=== PATIENT | male | born 1950 | race Asian ===

== ENCOUNTER → 2017-01-10 | Outpatient (CLI) | payer BC | END | disposition home or self-care (01) | LOC: CFH 15:27 | PROVIDERS: ATTEND Internal Medicine | DX: G45.9 Transient cerebral ischemic attack, unspecified (principal) | CPT/HCPCS: 93880 ==

== ENCOUNTER 2017-02-17 14:20 | Emergency (ER) | payer BC ==
[~2017-02-17] VITALS: Ht 168.9 cm; Wt 81.1 kg
[2017-02-17 14:22] VITALS: BP 162/82
== END 2017-02-17 16:03 | disposition home or self-care (01) ==
LOC: ED 15:57
DX: S39.012A Strain of muscle, fascia and tendon of lower back, initial encounter (principal); X50.1XXA Overexertion from prolonged static or awkward postures, initial encounter; Y93.89 Activity, other specified; Y92.89 Other specified places as the place of occurrence of the external cause; Y99.8 Other external cause status
CPT/HCPCS: 99281

== ENCOUNTER → 2017-02-17 | Outpatient (CLI) | payer BC | END | disposition home or self-care (01) | LOC: CFH 12:25 | PROVIDERS: ATTEND Internal Medicine | DX: I08.0 Rheumatic disorders of both mitral and aortic valves (principal); I10 Essential (primary) hypertension; E78.5 Hyperlipidemia, unspecified; E11.9 Type 2 diabetes mellitus without complications; G45.9 Transient cerebral ischemic attack, unspecified | CPT/HCPCS: 93306 ==

== ENCOUNTER → 2017-02-18 | Outpatient (CLI) | payer BC | END | disposition home or self-care (01) | LOC: CFH 07:28 | PROVIDERS: ATTEND Internal Medicine | DX: I63.9 Cerebral infarction, unspecified (principal); G93.89 Other specified disorders of brain; J34.1 Cyst and mucocele of nose and nasal sinus | CPT/HCPCS: 70551 ==

== ENCOUNTER 2019-05-30 10:27 | Emergency (ER) | payer BC, MEDICARE ==
[~2019-05-30] VITALS: Ht 170.2 cm; Wt 80.3 kg
[2019-05-30] MEDS ORDERED: BENA20TA61 PO (11:24)
[2019-05-30] MEDS ORDERED: LACO50TA PO (11:24)
[2019-05-30] MEDS ORDERED: METF500T17 PO (11:24)
[2019-05-30] MEDS ORDERED: ALLO300T PO (11:24)
[2019-05-30] MEDS ORDERED: CELE50CA PO (11:24)
[2019-05-30] MEDS ORDERED: GLIM2TAB PO (11:25)
[2019-05-30 11:40] LABS: BASOPHILS # (AUTO) 0.03 x10^3/uL (0-0.1); BASOPHILS % (AUTO) 1 % (0-1); EOSINOPHILS # (AUTO) 0.13 x10^3/uL (0-0.4); EOSINOPHILS % (AUTO) 3 % (1-7); LYMPHOCYTES # (AUTO) 1.86 x10^3/uL (1-3.4); LYMPHOCYTES % (AUTO) 36 % (22-44); MD NO; MEAN CORPUSCULAR HEMOGLOBIN 30.8 pg (27.5-34.5); MEAN CORPUSCULAR HGB CONC 33.9 g/dL (33.2-36.2); MEAN CORPUSCULAR VOLUME 90.9 fL (81-97); MEAN PLATELET VOLUME 7.6 fL (7.4-10.4); MONOCYTES # (AUTO) 0.38 x10^3/uL (0.2-0.8); MONOCYTES % (AUTO) 7 % (2-9); NEUTROPHILS # (AUTO) 2.78 x10^3/uL (1.8-6.8); NEUTROPHILS % (AUTO) 54 % (42-75); PLATELET COUNT 231 x10^3/uL (130-400); RED BLOOD COUNT 5.21 x10^6/uL (4.38-5.82); RED CELL DISTRIBUTION WIDTH 13.2 % (9.4-14.8)
[2019-05-30 11:47] LABS: ALBUMIN 3.6 g/dL (3.4-5.0); ANION GAP 6 mmol/L (5-15); CALCIUM 8.3 mg/dL (8.5-10.1); CHLORIDE 108 mmol/L (98-107); CREATININE 0.99 mg/dL (0.7-1.3)
--- NOTE | 2019-05-30 12:57 | NUR ---
dr lopez spoke with dr campos
--- NOTE | 2019-05-30 13:39 | NUR ---
PT TO MRI AT THIS TIME REMAINS AO4
--- NOTE | 2019-05-30 13:56 | NUR ---
REPORT RECEIVED FROM NITA GARRISON. PLAN OF CARE DISCUSSED.
[2019-05-30 14:15] VITALS: BP 150/79
--- NOTE | 2019-05-30 14:15 | NUR ---
PATIENT BACK FROM [place], PLACED BACK ON ALL MONITORING DEVICES. VSS, NAD, CALL LIGHT IN REACH. DENIES NEEDS AT THIS TIME.
== END 2019-05-30 15:23 | disposition home or self-care (01) ==
LOC: ED 15:15
DX: R41.82 Altered mental status, unspecified (principal); R41.0 Disorientation, unspecified; E11.9 Type 2 diabetes mellitus without complications; R42 Dizziness and giddiness
CPT/HCPCS: 36415; 70450; 70551; 80048; 82040; 85025; 93005; 99284

== ENCOUNTER → 2020-03-22 | Outpatient (CLI) | payer BC, MEDICARE ==
[~2020-03-22] MED LIST: ALLO300T PO; BENA20TA61 PO; CELE50CA PO; GLIM2TAB PO; LACO50TA PO; METF500T17 PO
== END | disposition home or self-care (01) ==
LOC: CARD 07:27
PROVIDERS: ATTEND Psychiatry & Neurology Neurology
DX: R94.01 Abnormal electroencephalogram [EEG] (principal); R41.0 Disorientation, unspecified
CPT/HCPCS: 95819

== ENCOUNTER → 2020-12-07 | Outpatient (CLI) | payer MEDICARE ==
[~2020-12-07] MED LIST changes: +GADOTERATE 10 MMOL/20ML SYR ONE
== END | disposition home or self-care (01) ==
LOC: RAD 11:50
PROVIDERS: ATTEND Family Medicine
DX: M47.817 Spondylosis without myelopathy or radiculopathy, lumbosacral region (principal); M25.78 Osteophyte, vertebrae; M48.061 Spinal stenosis, lumbar region without neurogenic claudication; M54.42 Lumbago with sciatica, left side
CPT/HCPCS: 72158; 72197; A9575

== ENCOUNTER 2020-12-14 12:37 | Emergency (ER) | payer MEDICARE ==
[~2020-12-14] VITALS: Ht 170.2 cm; Wt 81.0 kg
[~2020-12-14 12:37] MED LIST changes: -GADOTERATE 10 MMOL/20ML SYR ONE
--- NOTE | 2020-12-14 12:57 | NUR ---
PT WC'D TO ROOM 28 W/ C/O LOWER BACK PAIN W/ PAIN RADIATING FROM L HIP TO LEFT FOOT. PT STATES NUMBNESS WELL. PT STATES HE CLIMBED A TREE 2 WEEKS AGO AND THEN SX BEGAN SHORTLY AFTER. PT CONTINENT. PT RESTING ON GURNEY. NADN. MONITORS APPLIED. VSS. WARM BLANKET PROVIDED. CALL LIGHT IN REACH. FAMILY AT BEDSIDE. JARRED ROBLES AT BEDSIDE FOR EVAL.
[2020-12-14] MEDS ORDERED: DEXAMETHASONE 4 MG/ML, 1ML ONE (13:15)
[2020-12-14] MEDS ORDERED: ONDANSETRON 2MG/ML, 2ML ONE (13:15)
[2020-12-14] MEDS ORDERED: HYDROmorphone 1 MG/ML, 1ML INJ ONE (13:15)
[2020-12-14] MEDS ORDERED: DEXAMETHASONE 4 MG/ML, 1ML IVPush ONE (13:30)
[2020-12-14] MEDS ORDERED: ONDANSETRON 2MG/ML, 2ML IVPush ONE (13:30)
[2020-12-14] MEDS ORDERED: SODIUM CHLORIDE FLUSH 10ML SYR IVF ONE (13:30)
[2020-12-14] MEDS ORDERED: HYDROmorphone 1 MG/ML, 1ML INJ IV ONE (13:30)
--- NOTE | 2020-12-14 13:35 | NUR ---
PT RESTING ON RACHEL. DOUGIE. VSS. MEDICATED PER JUL. PT STATESD "MY BP GETS ELEVATED WHEN I'M IN THIS MUCH PAIN".
--- NOTE | 2020-12-14 13:58 | NUR ---
ERP DR. SIMEON AT BEDSIDE FOR RE-EVAL.
[2020-12-14 14:40] VITALS: BP 168/93
--- NOTE | 2020-12-14 14:42 | NUR ---
PT REC'VD DISCHARGE INSTRUCTIONS AND EDUCATION. PT HAD NO FURTHER QUESTIONS.
--- NOTE | 2020-12-14 14:45 | NUR ---
PT IN WHEELCHAIR TO DC AREA WITH SPOUSE.
== END 2020-12-14 15:05 | disposition home or self-care (01) ==
LOC: ED 12:43
DX: M51.16 Intervertebral disc disorders with radiculopathy, lumbar region (principal); E11.9 Type 2 diabetes mellitus without complications; M10.9 Gout, unspecified
CPT/HCPCS: 96374; 96375; 99284; J1100; J1170; J2405

== ENCOUNTER → 2021-02-07 | Outpatient (CLI) | payer MEDICARE | END | disposition home or self-care (01) | LOC: RAD 12:15 | PROVIDERS: ATTEND Physician Assistant Surgical | DX: M51.16 Intervertebral disc disorders with radiculopathy, lumbar region (principal); M41.86 Other forms of scoliosis, lumbar region | CPT/HCPCS: 72110 ==

== ENCOUNTER → 2021-02-12 | Outpatient (CLI) | payer MEDICARE ==
[~2021-02-12] MED LIST changes: +ASPI81TA45 PO; +BENA20TA54 PO; +CELE200C PO; +GABA300C PO; +GLIM4TAB8 PO; +IBUP-1223 PO; +MELO10CA3 PO; +METF10007 PO; +ROSU10TA2 PO; +TAMS-11 PO
[2021-02-12 10:36] LABS: ALANINE AMINOTRANSFERASE 44 U/L (12-78); ALBUMIN 3.6 g/dL (3.4-5.0); ANION GAP 7 mmol/L (5-15); CALCIUM 8.6 mg/dL (8.5-10.1); CHLORIDE 105 mmol/L (98-107); CREATININE 1.03 mg/dL (0.7-1.3)
[2021-02-12 10:39] LABS: ALKALINE PHOSPHATASE 84 U/L (45-117)
== END | disposition home or self-care (01) ==
LOC: STAR 09:34
PROVIDERS: ATTEND Orthopaedic Surgery
DX: Z01.818 Encounter for other preprocedural examination (principal); M48.061 Spinal stenosis, lumbar region without neurogenic claudication; M54.16 Radiculopathy, lumbar region; Z20.822 Contact with and (suspected) exposure to COVID-19
CPT/HCPCS: 36415; 80053; 87635; 93005